=== PATIENT | female | born 2000 | race African-American/Black ===

== ENCOUNTER 2024-04-22 03:39 | Emergency (ER) | payer BC, MEDICAID ==
[~2024-04-22] VITALS: Ht 165.1 cm; Wt 64.0 kg
[~2024-04-22 03:39] MED LIST: ALBU18HF2 IH; P20 MT
[2024-04-22 03:43] VITALS: BP 118/76; TEMP 37.6; O2SAT 97
[2024-04-22] MEDS: ACETAMINOPHEN 325MG TABLET PO ONE (04:10)
[2024-04-22 04:52] LABS: HCG SCREEN NEGATIVE
[2024-04-22 05:23] VITALS: PULSE 89; RESP 20
[2024-04-22] MEDS: IPRATROPIUM BROMIDE (0.02%) 0.5MG/2.5ML NEB HHN ONE (05:23)
[2024-04-22] MEDS ORDERED: ALBU90AE INH (05:36)
[2024-04-22] MEDS ORDERED: PRED10TA MT (05:36)
[2024-04-22] MEDS ORDERED: GUAI-741 MT (05:36)
== END 2024-04-22 06:46 | disposition home or self-care (01) ==
LOC: ER 03:39
DX: J45.901 Unspecified asthma with (acute) exacerbation (principal); Z20.822 Contact with and (suspected) exposure to COVID-19; Z79.899 Other long term (current) drug therapy
CPT/HCPCS: 71045; 84703; 87426; 87804; 94640; 99284